=== PATIENT | female | born 1975 | race Caucasian/White ===

== ENCOUNTER 2024-12-30 08:55 | Outpatient (CLI) | payer OTHER ==
--- NOTE | 2024-12-30 11:11 | RADIOLOGY REPORT ---
Exam: US ULTRASOUND PELVIS W/ORWO DPLX History: RETENTION OF URINE, UNSPECIFIED Comparison: NoneNone available at time of dictation. Date: 12/30/2024 09:13 AM Technique: Grayscale and color Doppler ultrasound of the pelvis was obtained. Pre-and postvoid images of the bladder were obtained. Findings: Prevoid bladder is well distended and unremarkable. Pre bladder volume measures 39.33 cc). The postv oid bladder, demonstrates postvoid bladder volume residual of 12 cc. The urinary bladder is not well distended which limits evaluation. Incidentally seen left ovarian cystic structure measuring 5.7 cm. IMPRESSION: No significant post void residual noted. Incidentally seen left ovarian cystic structure measuring 5.7 cm. Recommend further evaluation with pelvic ultrasound.
== END 2024-12-30 23:59 | disposition home or self-care (01) ==
LOC: RAD 08:55
PROVIDERS: ATTEND Family Medicine
DX: R33.9 Retention of urine, unspecified (principal)
CPT/HCPCS: 76857